=== PATIENT | female | born 1965 | race African-American/Black ===

== ENCOUNTER → 2016-07-17 | Outpatient (CLI) | payer OTHER | LOC: OD 14:06 | DX: M25.562 Pain in left knee (principal); M25.462 Effusion, left knee ==

== ENCOUNTER → 2016-09-22 | Outpatient (CLI) | payer OTHER ==
[2016-09-22 15:16] LABS: CHOLESTEROL 228.99 mg/dL (0-200); Direct HDL 55 mg/dL (>40); TRIGLYCERIDES 91 mg/dL (<150)
[2016-09-22 15:27] LABS: DIRECT LDL 126 mg/dL (<100)
== END ==
LOC: CCC 14:08
DX: Z00.00 Encounter for general adult medical examination without abnormal findings (principal)
CPT/HCPCS: 36415; 80061

== ENCOUNTER 2017-01-22 13:49 | Emergency (ER) | payer OTHER ==
[2017-01-22 14:07] VITALS: BP 117/77
--- NOTE | 2017-01-22 16:11 | ER Document Report ---
ED General - General Mode of Arrival: Ambulatory Information source: Patient TRAVEL OUTSIDE OF THE [place] IN LAST 30 DAYS: No - General Chief Complaint: Abnormal Lab Results Stated Complaint: SENT BY HER DOCTOR Time Seen by Provider: 01/22/17 16:00 Notes: Patient reports having outpatient labs done today and being called secondary to a low hemoglobin and told to come into the emergency department. Patient states she has been having bouts of lightheadedness and dizziness for the last 3 days. Patient states she has not been losing blood as far as she knows however she did have a heavy period last month. Patient denies any syncopal episodes, shortness of breath, or black tarry stools. (KLAUS DAWKINS) - Related Data Allergies/Adverse Reactions: No Known Allergies Allergy (Verified 01/22/17 13:58) Past Medical History - General Information source: Patient - Social History Smoking Status: Never Smoker Cigarette use (# per day): No Chew tobacco use (# tins/day): No Frequency of alcohol use: None Drug Abuse: None Lives with: Family Family History: Reviewed & Not Pertinent Patient has suicidal ideation: No Patient has homicidal ideation: No - Past Medical History Cardiac Medical History: Reports: Hx Hypertension GI Medical History: Reports: Hx Gastroesophageal Reflux Disease Past Surgical History: Reports: Hx Appendectomy, Hx Section - Immunizations Hx Diphtheria, Pertussis, Tetanus Vaccination: Yes Review of Systems - Review of Systems Constitutional: No symptoms reported EENT: No symptoms reported Cardiovascular: See HPI, Dizziness, Lightheaded. denies: Syncope Respiratory: denies: Short of breath Gastrointestinal: denies: Black stools Genitourinary: No symptoms reported Female Genitourinary: No symptoms reported Musculoskeletal: No symptoms reported Skin: No symptoms reported Hematologic/Lymphatic: No symptoms reported Neurological/Psychological: No symptoms reported -: Yes All other systems reviewed and negative Physical Exam - Vital signs Vitals: Temp Pulse Resp BP Pulse Ox 98.3 F 76 16 117/77 100 01/22/17 14:03 01/22/17 14:03 01/22/17 14:03 01/22/17 14:03 01/22/17 14:03 - Notes Notes: Physical Exam: General: Alert, appears well. HEENT: Normocephalic. Atraumatic. PERRLA. Extraocular movements intact. Oropharynx clear. Neck: Supple. Respiratory: No respiratory distress. Abdominal: Normal Inspection. No distension. Extremities: Moves all four extremities. Neurological: Normal cognition. AAOx4. Normal speech. Psychological: Normal affect. Normal Mood. Skin: Warm. Dry. Normal color. (KLAUS DAWKINS) - Vital Signs Vital signs: Temp Pulse Resp BP Pulse Ox 98.3 F 76 16 117/77 100 01/22/17 14:03 01/22/17 14:03 01/22/17 14:03 01/22/17 14:03 01/22/17 14:03 Discharge - Discharge Clinical Impression: Anemia Condition: Good Disposition: HOME, SELF-CARE Instructions: Anemia, Iron Deficiency ([facility]) Additional Instructions: Your hemoglobin level was 7.8. Your red blood cells are small, consistent with a low iron problem. Take iron as prescribed. [facility] and a repeat of your blood level. If her hemoglobin drops lower, you may need a transfusion. We discussed the option of a transfusion today, but both agreed that it would be better if you not to have a transfusion at this point. Prescriptions: Ferrous Sulfate [Slow Fe] 142 mg PO DAILY #60 tablet.er Scribe Attestation: 01/22/17 21:03 I personally performed the services described in the documentation, reviewed and edited the documentation which was dictated to the scribe in my presence, and it accurately records my words and actions. (ADRIANE WAY) Scribe Documentation - Scribe Written by Bene:: Preston Deal, 01/22/2017 1724 acting as scribe for :: Kelli
== END 2017-01-22 16:37 | disposition home or self-care (01) ==
LOC: ER 13:49
DX: D64.9 Anemia, unspecified (principal); I10 Essential (primary) hypertension; K21.9 Gastro-esophageal reflux disease without esophagitis
CPT/HCPCS: 99283

== ENCOUNTER → 2017-01-22 | Outpatient (CLI) | payer OTHER ==
[2017-01-22 12:31] LABS: ABSOLUTE BASOPHILS # (AUTO) 0.1 10^3/uL (0.0-0.2); ABSOLUTE EOSINOPHILS # (AUTO) 0.1 10^3/uL (0.0-0.6); ABSOLUTE LYMPHOCYTES (AUTO) 2.7 10^3/uL (0.5-4.7); ABSOLUTE MONOCYTES (AUTO) 0.7 10^3/uL (0.1-1.4); ABSOLUTE NEUT (AUTO) 3.4 10^3/uL (1.7-8.2); BASOPHILS % (AUTO) 1.5 % (0-2); EOSINOPHILS % (AUTO) 1.4 % (0-6); HEMATOCRIT 24.9 % (36.0-47.0); HGB HCT DIFFERENCE -1.5; LYMPHOCYTES % (AUTO) 38.9 % (13-45); MEAN CORPUSCULAR HGB CONC 31.5 g/dL (32.0-36.0); MEAN CORPUSCULAR VOLUME 67 fl (80-97); MONOCYTES % (AUTO) 9.4 % (3-13); RED BLOOD COUNT 3.73 10^6/uL (3.72-5.28); RED CELL DISTRIBUTION WIDTH 18.2 % (11.5-14.0); SEGMENTED NEUTROPHILS % (AUTO) 48.8 % (42-78)
[2017-01-22 12:38] LABS: HEMOGLOBIN 7.8 g/dL (12.0-15.5)
[2017-01-22 12:46] LABS: ALANINE AMINOTRANSFERASE 20 U/L (9-52); ALBUMIN 4.2 g/dL (3.5-5.0); ALKALINE PHOSPHATASE 112 U/L (38-126); ANION GAP 14 (5-19); ASPARTATE AMINO TRANSFERASE 16 U/L (14-36); BILIRUBIN,DIRECT 0.3 mg/dL (0.0-0.4); BILIRUBIN,TOTAL 0.5 mg/dL (0.2-1.3); BLOOD UREA NITROGEN 14 mg/dL (7-20); CALCIUM 9.6 mg/dL (8.4-10.2); CARBON DIOXIDE 21 mmol/L (22-30); CHLORIDE 108 mmol/L (98-107); CHOLESTEROL 195.99 mg/dL (0-200); CREATININE RESULT 0.67 mg/dL (0.52-1.25); Direct HDL 53 mg/dL (>40); GLUCOSE 88 mg/dL (75-110); POTASSIUM 4.1 mmol/L (3.6-5.0); SODIUM 143.4 mmol/L (137-145); TOTAL PROTEIN 8.4 g/dL (6.3-8.2); TRIGLYCERIDES 102 mg/dL (<150)
[2017-01-22 12:57] LABS: DIRECT LDL 115 mg/dL (<100)
== END ==
LOC: CCC 12:03
DX: R42 Dizziness and giddiness (principal)
CPT/HCPCS: 36415; 80053; 80061; 83036; 84443; 85025

== ENCOUNTER → 2017-11-17 | Outpatient (CLI) | payer OTHER ==
[2017-11-17 11:49] LABS: ABSOLUTE EOSINOPHILS # (AUTO) 0.1 10^3/uL (0.0-0.6); ABSOLUTE LYMPHOCYTES (AUTO) 2.5 10^3/uL (0.5-4.7); ABSOLUTE MONOCYTES (AUTO) 0.4 10^3/uL (0.1-1.4); ABSOLUTE NEUT (AUTO) 3.7 10^3/uL (1.7-8.2); BASOPHILS % (AUTO) 0.6 % (0-2); EOSINOPHILS % (AUTO) 1.3 % (0-6); HEMATOCRIT 30.8 % (36.0-47.0); HEMOGLOBIN 9.9 g/dL (12.0-15.5); LYMPHOCYTES % (AUTO) 37.4 % (13-45); MEAN CORPUSCULAR HEMOGLOBIN 24.3 pg (27.0-33.4); MEAN CORPUSCULAR VOLUME 76 fl (80-97); MONOCYTES % (AUTO) 5.9 % (3-13); PLATELET COUNT 552 10^3/uL (150-450); RED BLOOD COUNT 4.05 10^6/uL (3.72-5.28); RED CELL DISTRIBUTION WIDTH 16.1 % (11.5-14.0); SEGMENTED NEUTROPHILS % (AUTO) 54.8 % (42-78); TOTAL CELLS COUNTED % (AUTO) 100 %; WHITE BLOOD COUNT 6.8 10^3/uL (4.0-10.5)
--- NOTE | 2017-11-17 11:50 | RADIOLOGY REPORT (SQ) ---
EXAM DESCRIPTION: KNEE LEFT 2 VIEWS COMPLETED DATE/TIME: 11/17/2017 11:08 am REASON FOR STUDY: EFFUSION, LEFT KNEE SWELLING COMPARISON: 07/17/2016 left knee films NUMBER OF VIEWS: Two views. TECHNIQUE: AP and lateral radiographic images acquired of the left knee. LIMITATIONS: None. FINDINGS: MINERALIZATION: Normal. BONES: No acute fracture or dislocation. No worrisome bone lesions. JOINT: Large suprapatellar knee joint effusion. There is soft tissue density over the popliteal harpal a worrisome for a fluid-filled Marcos's cyst. These findings are worrisome for internal derangement. SOFT TISSUES: Large joint effusion with probable fluid-filled Marcos's cyst in the popliteal fossa. N o radiopaque foreign body. No soft tissue gas. OTHER: No other significant finding. IMPRESSION: Large joint effusion with Marcos's cyst in the popliteal fossa. This indicates internal derangement. Consider MRI for followup TECHNICAL DOCUMENTATION: JOB ID: [id number] [employer]- All Rights Reserved Reading location - IP/workstation name: [email or web address]
[2017-11-17 12:09] LABS: ALANINE AMINOTRANSFERASE 19 U/L (9-52); ALBUMIN 4.3 g/dL (3.5-5.0); ALKALINE PHOSPHATASE 103 U/L (38-126); ANION GAP 16 (5-19); ASPARTATE AMINO TRANSFERASE 17 U/L (14-36); BILIRUBIN,DIRECT 0.3 mg/dL (0.0-0.4); BILIRUBIN,TOTAL 0.4 mg/dL (0.2-1.3); BLOOD UREA NITROGEN 12 mg/dL (7-20); CALCIUM 9.6 mg/dL (8.4-10.2); CARBON DIOXIDE 23 mmol/L (22-30); CHLORIDE 105 mmol/L (98-107); CHOLESTEROL 194.99 mg/dL (0-200); GLUCOSE 89 mg/dL (75-110); POTASSIUM 4.2 mmol/L (3.6-5.0); SODIUM 143.8 mmol/L (137-145); TOTAL PROTEIN 9.1 g/dL (6.3-8.2); TRIGLYCERIDES 101 mg/dL (<150)
[2017-11-17 12:29] LABS: DIRECT LDL 121 mg/dL (<100)
== END ==
LOC: CCC 10:36
DX: M25.462 Effusion, left knee (principal); M71.22 Synovial cyst of popliteal space [Baker], left knee; D64.9 Anemia, unspecified
CPT/HCPCS: 36415; 80053; 80061; 83036; 84443; 85025

== ENCOUNTER → 2018-02-10 | Outpatient (CLI) | payer OTHER ==
[2018-02-10 11:59] LABS: ABSOLUTE BASOPHILS # (AUTO) 0.1 10^3/uL (0.0-0.2); ABSOLUTE EOSINOPHILS # (AUTO) 0.1 10^3/uL (0.0-0.6); ABSOLUTE LYMPHOCYTES (AUTO) 2.9 10^3/uL (0.5-4.7); ABSOLUTE MONOCYTES (AUTO) 0.4 10^3/uL (0.1-1.4); ABSOLUTE NEUT (AUTO) 3.3 10^3/uL (1.7-8.2); BASOPHILS % (AUTO) 1.2 % (0-2); EOSINOPHILS % (AUTO) 1.3 % (0-6); HEMATOCRIT 31.1 % (36.0-47.0); HEMOGLOBIN 10.4 g/dL (12.0-15.5); LYMPHOCYTES % (AUTO) 42.3 % (13-45); MEAN CORPUSCULAR HEMOGLOBIN 25.9 pg (27.0-33.4); MEAN CORPUSCULAR HGB CONC 33.4 g/dL (32.0-36.0); MEAN CORPUSCULAR VOLUME 78 fl (80-97); MONOCYTES % (AUTO) 6.6 % (3-13); PLATELET COUNT 458 10^3/uL (150-450); RED CELL DISTRIBUTION WIDTH 17.3 % (11.5-14.0); SEGMENTED NEUTROPHILS % (AUTO) 48.6 % (42-78); TOTAL CELLS COUNTED % (AUTO) 100 %; WHITE BLOOD COUNT 6.8 10^3/uL (4.0-10.5)
[2018-02-10 12:05] LABS: ABSOLUTE RETICS # 0.052 10^6/uL (0.028-0.122); RETICULOCYTE COUNT (AUTO) 1.32 % (0.66-2.85)
== END ==
LOC: CCC 10:39
DX: D64.9 Anemia, unspecified (principal)
CPT/HCPCS: 36415; 85025; 85045